=== PATIENT | male | born 2000 | race American Indian/Alaskan Native ===

== ENCOUNTER 2019-09-17 17:28 | Emergency (ER) | payer SELFPAY ==
--- NOTE | 2019-09-17 17:50 | Event Note ---
ED Screening Note ED Screening Note: 19 yo male injured left knee while playing basketball. This initial assessment/diagnostic orders/clinical plan/treatment(s) is/are subject to change based on patients health status, clinical progression and re- assessment by fellow clinical providers in the ED. Further treatment and workup at subsequent clinical providers discretion. Patient/guardian urged not to elope from the ED as their condition may be serious if not clinically assessed and managed. Initial orders include: xr left knee
--- NOTE | 2019-09-17 18:25 | XRay Report ---
Left knee 3 views INDICATION: Left knee pain following injury IMPRESSION: Small left knee effusion. There is mild prepatellar soft tissue edema. The patellar tendo n superiorly appears slightly thickened and underlying injury is difficult to exclude. Small knee eff usion. Signer Name: Tommy Isabel MD Signed: 09/17/2019 6:20 PM Workstation Name: [id number]
[2019-09-17] MEDS ORDERED: IBUPROFEN 800 MG TAB PO ONE (19:28)
[2019-09-17] MEDS ORDERED: HYDROcodone/ACETAMINOPHEN 5-325 MG TAB PO ONE (19:28)
--- NOTE | 2019-09-17 19:35 | Emergency Department Report ---
HPI - General Chief Complaint: Extremity Injury, Lower Time Seen by Provider: 09/17/19 19:23 - HPI HPI: Room 30 The patient is a 19-year-old male present with a chief complaint of left knee pain. The patient states today at 16: 00 while playing basketball he was undercut and fell injuring his left knee. Patient states he felt something tear. Patient denies loss of consciousness ED Past Medical Hx - Past Medical History Previous Medical History?: No - Surgical History Past Surgical History?: No - Family History Family history: no significant - Social History Smoking Status: Never Smoker Substance Use Type: None - Medications Home Medications: Home Medications Medication Instructions Recorded Confirmed Last Taken Type HYDROcodone/APAP 5-325 [Bradford 1 - 2 each PO Q6HR PRN #7 tablet 09/17/19 Unknown Rx 5/325] Ibuprofen [Motrin 800 MG tab] 800 mg PO Q8HR PRN #20 tablet 09/17/19 Unknown Rx ED Review of Systems ROS: Stated complaint: KNEE INJURY Other details as noted in HPI Constitutional: no symptoms reported Musculoskeletal: arthralgia Physical Exam - Physical Exam Vital Signs: Vital Signs 09/17/19 17:48 Temperature 98.2 F Pulse Rate 67 Respiratory 18 Rate Blood Pressure 123/58 O2 Sat by Pulse 100 Oximetry Physical Exam: GENERAL: The patient is well-developed well-nourished male sitting in chair not appearing to be in acute distress. [] HEENT: Normocephalic. Atraumatic. Extraocular motions are intact. Patient has moist mucous membranes. NECK: Supple. Trachea midline CHEST/LUNGS: There is no respiratory distress noted. SKIN: There is no rash. There is no edema. There is no diaphoresis. NEURO: The patient is awake, alert, and oriented. The patient is cooperative. The patient has normal speech MUSCULOSKELETAL: There is no tenderness and pain to a quarter sized region between the left tibial tuberosity and inferior pole of the patella. There is no limitation range of motion. There is pain with varus stress to the medial aspect of the left knee ED Course Vital Signs 09/17/19 17:48 Temperature 98.2 F Pulse Rate 67 Respiratory 18 Rate Blood Pressure 123/58 O2 Sat by Pulse 100 Oximetry ED Medical Decision Making - Radiology Data Radiology results: report reviewed (Left knee x-ray), image reviewed (Left knee x-ray) interpreted by me: Left knee x-ray-no fracture Findings [facility] [address] [place] [address] XRay Report Signed Patient: Jayjay ALVAREZ#: [id number] : 2000 Acct:[id number] Age/Sex: 19 / M ADM Date: 09/17/19 Loc: ED Attending Dr: Ordering Physician: Ofelia Solis MD Date of Service: 09/17/19 Procedure(s): XR knee 3V LT Accession Number(s): [id number] cc: Ofelia Solis MD Fluoro Time In Minutes: Left knee 3 views INDICATION: Left knee pain following injury IMPRESSION: Small left knee effusion. There is mild prepatellar soft tissue edema. The patellar tendon superiorly appears slightly thickened and underlying injury is difficult to exclude. Small knee effusion. Signer Name: Tommy Isabel MD Signed: 09/17/2019 6:20 PM Workstation Name: [id number] Transcribed By: Dictated By: Tommy Isabel MD Electronically Authenticated By: Tommy Isabel MD Signed Date/Time: 09/17/191819 DD/ 18 TD/TT: - Differential Diagnosis Knee sprain, meniscus tear, knee contusion Critical care attestation.: If time is entered above; I have spent that time in minutes in the direct care of this critically ill patient, excluding procedure time. ED Disposition Clinical Impression: Left knee injury Disposition: DC- TO HOME OR SELFCARE Is pt being admited?: No Does the pt Need Aspirin: No Condition: Stable Instructions: Knee Sprain (ED), Knee Immobilizer (ED) Additional Instructions: Return to the emergency department should you develop worsening symptoms, inability to tolerate food or liquids, high fever or any other concerns Prescriptions: Ibuprofen [Motrin 800 MG tab] 800 mg PO Q8HR PRN #20 tablet PRN Reason: Pain, Moderate (4-6) HYDROcodone/APAP 5-325 [Bradford 5/325] 1 - 2 each PO Q6HR PRN #7 tablet PRN Reason: Pain Referrals: JODY TEE MD [Staff Physician] - 3-5 Days (Dr. Tee is an orthopedic surgeon. Please follow-up with him for further evaluation) Time of Disposition: 19:38
[2019-09-17 20:00] VITALS: BP 120/74
== END 2019-09-17 19:55 | disposition home or self-care (01) ==
LOC: ED 17:28
DX: S89.92XA Unspecified injury of left lower leg, initial encounter (principal); W18.30XA Fall on same level, unspecified, initial encounter; Y93.89 Activity, other specified; Y92.89 Other specified places as the place of occurrence of the external cause; Y99.8 Other external cause status